=== PATIENT | female | born 1990 | race Hispanic/Latino ===

== ENCOUNTER 2020-03-09 17:42 | Emergency (ER) | payer MEDICARE, OTHER ==
[~2020-03-09] VITALS: Ht 162.6 cm; Wt 72.6 kg
[~2020-03-09 17:42] MED LIST: KEFLEX500 MG PO
== END 2020-03-09 19:25 | disposition home or self-care (01) ==
LOC: ER 18:42
DX: A60.00 Herpesviral infection of urogenital system, unspecified (principal)
CPT/HCPCS: 99282